=== PATIENT | female | born 2000 | race Caucasian/White ===

== ENCOUNTER → 2021-12-09 22:14 | Observation (INO) ==
[2021-12-09 20:56] LABS: Bacteria,Urine Few per hpf (None-Few); Basophils % 0.2 %; Bilirubin,Urine Negative (Negative); Blood,Urine Negative (Negative); Clarity,Urine Turbid (Clear); Color,Urine Light-Yellow (Yellow); Eosinophils # 0.1 K/mcL (0.0-0.6); Eosinophils % 0.4 %; Glucose,Urine (UA) Normal (Normal); Hematocrit 35.4 % (35.3-44.9); Hemoglobin 11.7 g/dL (11.5-15.4); Immature Granulocytes % 0.3 % (0-4); Ketones,Urine Negative (Negative); Leukocyte Esterase,Urine Large (Negative); Lymphocytes # 1.9 K/mcL (0.6-4.6); Lymphocytes % 16.6 %; Mean Corpuscular HGB Conc 33.1 g/dL (31.6-35.5); Mean Corpuscular Hemoglobin 31.5 pg (28.0-33.3); Mean Corpuscular Volume 95.2 fL (83.0-100.0); Mean Platelet Volume 12.4 fL (9.4-12.4); Monocytes # 0.8 K/mcL (0.0-1.3); Monocytes % 6.8 %; Mucus,Urine Few per lpf (None-Few); Neutrophils # 8.6 K/mcL (1.6-8.9); Nitrite,Urine Negative (Negative); PH,Urine 6.5 pH Units (5.0-8.0); Platelet Count 235 K/mcL (140-400); Protein,Urine Trace mg/dL (Neg-Trace); Red Blood Count 3.72 M/mcL (3.82-4.97); Red Cell Distribution Width 14.5 % (11.5-14.5); Segmented Neutrophils % 75.7 %; Specific Gravity,Urine 1.011 (1.010-1.025); Squamous Epithelial Cell,Urine Moderate per hpf (None-Few); Urobilinogen,Urine Normal (Normal); WBC,Urine 30-50 per hpf (0-3); White Blood Count 11.4 K/mcL (4.3-11.1)
[2021-12-09 21:05] LABS: Protein/Creatinine Ratio,Urine 0.4 mg/mg (0.00-0.20)
[2021-12-09 21:15] LABS: Alanine Aminotransferase 8 Units/L (7-52); Aspartate Amino Transferase 13 Units/L (13-39); BUN/Creatinine Ratio 21 (6-26); Blood Urea Nitrogen 9 mg/dL (6-20); Lactate Dehydrogenase 177 Units/L (140-271); Uric Acid 5.7 mg/dL (2.3-7.6); eGFR For African Americans > 60 (> 60); eGFR For Non-African Americans > 60 (> 60)
[~2021-12-09 22:14] MED LIST: Ondansetron 4 MG/2 ML VIAL IVP ONE
== END | disposition home or self-care (01) ==
LOC: 1NENULAB
PROVIDERS: ADMIT Obstetrics & Gynecology; ATTEND Obstetrics & Gynecology

== ENCOUNTER 2021-12-18 11:41 | Inpatient (IN) ==
[2021-12-18] MEDS ORDERED: Ondansetron 4 MG/2 ML VIAL IVP PRN ×2 (12:31→12:40)
[2021-12-18] MEDS ORDERED: Bupivacaine-MPF 0.25% 10 ML VIAL EP ONE (12:31)
[2021-12-18] MEDS ORDERED: EPHEDrine 50 MG/ML VIAL IVP PRN (12:31)
[2021-12-18] MEDS ORDERED: Ropivacaine/PF 0.2% 20 ML VIAL EP ONE (12:31)
[2021-12-18] MEDS ORDERED: Famotidine 20 MG/2 ML VIAL IVP PRN (12:40)
[2021-12-18] MEDS ORDERED: Naloxone 0.4 MG/ML INJ IVP PRN (12:40)
[2021-12-18] MEDS ORDERED: Lidocaine 1% 20 ML MDV INFILT PRN (12:40)
[2021-12-18] MEDS ORDERED: *HR* Nalbuphine 10 MG/ML AMPUL IV PRN (12:40)
[2021-12-18] MEDS ORDERED: Metoclopramide 10 MG/2 ML VIAL IVP PRN (12:40)
[2021-12-18 13:07] LABS: Basophils % 0.2 %; Eosinophils % 0.3 %; Hematocrit 34.6 % (35.3-44.9); Hemoglobin 11.4 g/dL (11.5-15.4); Immature Granulocytes % 0.4 % (0-4); Lymphocytes # 1.5 K/mcL (0.6-4.6); Lymphocytes % 13.5 %; Mean Corpuscular HGB Conc 32.9 g/dL (31.6-35.5); Mean Corpuscular Hemoglobin 30.9 pg (28.0-33.3); Mean Corpuscular Volume 93.8 fL (83.0-100.0); Mean Platelet Volume 12.1 fL (9.4-12.4); Monocytes # 0.8 K/mcL (0.0-1.3); Monocytes % 7.1 %; Neutrophils # 8.7 K/mcL (1.6-8.9); Platelet Count 219 K/mcL (140-400); Red Blood Count 3.69 M/mcL (3.82-4.97); Red Cell Distribution Width 14.6 % (11.5-14.5); Segmented Neutrophils % 78.5 %; White Blood Count 11.1 K/mcL (4.3-11.1)
[2021-12-18 13:19] LABS: Creatinine,Urine 155 mg/dL; Protein/Creatinine Ratio,Urine 0.82 mg/mg (0.00-0.20)
[2021-12-18 13:37] LABS: Alanine Aminotransferase 7 Units/L (7-52); Aspartate Amino Transferase 11 Units/L (13-39); BUN/Creatinine Ratio 23 (6-26); Blood Urea Nitrogen 9 mg/dL (6-20); Lactate Dehydrogenase 142 Units/L (140-271); Uric Acid 5.5 mg/dL (2.3-7.6); eGFR For African Americans > 60 (> 60); eGFR For Non-African Americans > 60 (> 60)
[2021-12-18 13:47] LABS: Influenza A PCR Negative (Negative); Influenza B PCR Negative (Negative); Resp. Syncytial Virus PCR Negative (Negative)
[2021-12-18 13:57] LABS: SARS-CoV-2 by PCR (In House) Negative (Negative)
[2021-12-18] MEDS: Ringers Solution, Lactated 1,000 ML IVC SCH ×2 (14:11→18:52)
[2021-12-18] MEDS: miSOPROStoL 25 MCG TABLET VG SCH (16:26)
[2021-12-18 18:57] LABS: Amphetamine Screen,Urine Negative ng/mL (Cutoff=1000); Barbiturate Screen,Urine Negative ng/mL (Cutoff=200); Benzodiazepines Screen,Urine Negative ng/mL (Cutoff=200); Cannabinoid Screen,Urine Negative ng/mL (Cutoff = 50); Cocaine Screen,Urine Negative ng/mL (Cutoff= 300); Opiate Screen,Urine Negative ng/mL (Cutoff=300); Phencyclidine Screen,Urine Negative ng/mL (Cutoff=25)
[2021-12-18] MEDS: Oxytocin 20 units/ LR 1000 mL 20 UNIT/1,000 ML BAG IVC SCH (20:57)
[2021-12-18] MEDS ORDERED: Ropivacaine/PF 0.2% 20 ML VIAL ONE (22:37)
[2021-12-19] MEDS: Ringers Solution, Lactated 1,000 ML IVC SCH ×2 (02:58→11:49)
[2021-12-19] MEDS: Epidural Premix (fent/bupiv) 110 ML EP SCH ×3 (06:09→13:31)
[2021-12-19] MEDS: Oxytocin 20 units/ LR 1000 mL 20 UNIT/1,000 ML BAG IVC SCH (09:49)
[2021-12-19] MEDS: miSOPROStoL 25 MCG TABLET VG SCH (13:31)
[2021-12-19] MEDS ORDERED: ceFAZolin 3,000 MG in Water for inj. (sterile) 30 ML IVP ONE (15:56)
[2021-12-19] MEDS ORDERED: Azithromycin 500 MG in 0.9 % Sodium Chloride 250 ML IVPB ONE (15:56)
[2021-12-19] MEDS ORDERED: *HR* Morphine Sulfate/PF 10 MG/10 ML AMPUL ONE (17:12)
[2021-12-19] MEDS ORDERED: *HR* FentaNYL (PF) 100 MCG/2 ML VIAL ONE ×2 (17:12→17:58)
[2021-12-19] MEDS ORDERED: Lidocaine/EPI 1:200k 2% PF 20 ML VIAL ONE ×2 (17:12→17:58)
[2021-12-19] MEDS ORDERED: Ondansetron 4 MG/2 ML VIAL ONE (17:12)
[2021-12-19] MEDS ORDERED: *HR* Oxytocin 10 UNIT/ML VIAL ONE (18:17)
[2021-12-19] MEDS ORDERED: *HR* OxyCODONE Immed Rel 5 MG TABLET PO PRN ×2 (18:40→22:56)
[2021-12-19] MEDS ORDERED: Promethazine 6.25 MG in Water for inj. (sterile) 20 ML IVPB PRN (18:40)
[2021-12-19] MEDS ORDERED: *HR* FentaNYL (PF) 100 MCG/2 ML VIAL IVP PRN (18:40)
[2021-12-19] MEDS ORDERED: Naloxone 0.4 MG/ML INJ IVP PRN (18:40)
[2021-12-19] MEDS ORDERED: Acetaminophen IV 1,000 MG/100 ML BAG IVPB ONE (18:50)
[2021-12-19] MEDS ORDERED: Ketorolac 30 MG/ML VIAL ONE (18:59)
[2021-12-19] MEDS ORDERED: Measles/Mumps/Rubella Vacc 0.5 ML VIAL SQ ONE (22:56)
[2021-12-19] MEDS ORDERED: Oxytocin 20 units/ LR 1000 mL 20 UNIT/1,000 ML BAG IVC SCH (22:56)
[2021-12-19] MEDS ORDERED: Ondansetron 4 MG/2 ML VIAL IVP PRN (22:56)
[2021-12-19] MEDS ORDERED: Metoclopramide 10 MG/2 ML VIAL IVP PRN (22:56)
[2021-12-20] MEDS ORDERED: Ketorolac 30 MG/ML VIAL IVP SCH (01:00)
[2021-12-20 06:23] LABS: Basophils # 0.1 K/mcL (0.0-0.2); Basophils % 0.3 %; Eosinophils % 0.2 %; Hematocrit 28.9 % (35.3-44.9); Immature Granulocytes % 0.4 % (0-4); Lymphocytes # 1.8 K/mcL (0.6-4.6); Lymphocytes % 11.3 %; Mean Corpuscular HGB Conc 32.2 g/dL (31.6-35.5); Mean Corpuscular Volume 96.3 fL (83.0-100.0); Mean Platelet Volume 11.9 fL (9.4-12.4); Monocytes # 0.9 K/mcL (0.0-1.3); Neutrophils # 12.8 K/mcL (1.6-8.9); Platelet Count 169 K/mcL (140-400); Red Cell Distribution Width 14.7 % (11.5-14.5); Segmented Neutrophils % 81.8 %; White Blood Count 15.6 K/mcL (4.3-11.1)
[2021-12-20 06:25] LABS: Hemoglobin 9.3 g/dL (11.5-15.4)
[2021-12-20] MEDS ORDERED: Ibuprofen 600 MG TABLET PO SCH (07:00)
[2021-12-20] MEDS: *HR* Enoxaparin 80 MG/0.8 ML SYRINGE SQ SCH ×2 (09:14→21:03)
[2021-12-20] MEDS: Simethicone 80 MG TAB.CHEW PO SCH ×2 (09:17→21:03)
[2021-12-20] MEDS: Prenatal Vit/FA 1 EACH TABLET PO SCH (09:17)
[2021-12-20] MEDS: Acetaminophen 325 MG TABLET PO SCH ×2 (11:50→21:03)
[2021-12-20] MEDS: Ibuprofen 600 MG TABLET PO SCH ×2 (14:44→21:03)
[2021-12-21] MEDS: Simethicone 80 MG TAB.CHEW PO SCH ×3 (07:40→22:10)
[2021-12-21] MEDS: *HR* Enoxaparin 80 MG/0.8 ML SYRINGE SQ SCH ×2 (07:41→22:08)
[2021-12-21] MEDS: Prenatal Vit/FA 1 EACH TABLET PO SCH (07:41)
[2021-12-21] MEDS: Acetaminophen 325 MG TABLET PO SCH ×2 (07:41→22:10)
[2021-12-21] MEDS: Ibuprofen 600 MG TABLET PO SCH ×2 (15:24→22:10)
[2021-12-22] MEDS: Ibuprofen 600 MG TABLET PO SCH (05:37)
[2021-12-22] MEDS: Acetaminophen 325 MG TABLET PO SCH (05:37)
[2021-12-22 06:58] VITALS: BP 119/72; PULSE 75; TEMP 98.1; O2SAT 98
[2021-12-22] MEDS: *HR* Enoxaparin 80 MG/0.8 ML SYRINGE SQ SCH (09:16)
[2021-12-22] MEDS: Prenatal Vit/FA 1 EACH TABLET PO SCH (09:16)
== END 2021-12-22 17:00 | disposition home or self-care (01) | DRG 787 ==
LOC: 1NENULAB 11:41 → 1NENUOBS 12-19 22:58
PROVIDERS: ADMIT Obstetrics & Gynecology; ATTEND Obstetrics & Gynecology